=== PATIENT | male | born 1975 | race Caucasian/White ===

== ENCOUNTER 2020-12-27 22:25 | Observation (INO) ==
[2020-12-27 23:01] LABS: Basophils # (auto) 0.03 K/uL (0-0.2); Basophils % (auto) 0.3 %; Eosinophils # (auto) 0.25 K/uL (0-0.5); Eosinophils % (auto) 2.8 %; Hematocrit (blood only) 45.6 % (42-52); Hemoglobin 16.2 g/dL (14.0-18.0); Immature Granulocytes # (auto) 0.01 K/uL (0.00-0.02); Immature Granulocytes % (auto) 0.1 %; Lymphocytes # (auto) 1.83 K/uL (1.2-3.4); Lymphocytes % (auto) 20.5 %; Mean Corpuscular Hemoglobin 30.2 pg (25-34); Mean Corpuscular Hgb Conc 35.5 g/dL (32-36); Mean Corpuscular Volume 85.1 fL (80-100); Mean Platelet Volume 10.9 fL (7.4-10.4); Monocytes # (auto) 0.61 K/uL (0.11-0.59); Monocytes % (auto) 6.8 %; Neutrophils % (auto) 69.5 %; Platelet Count 244 K/uL (130-400); RDW Coefficient of Variation 13.5 % (11.5-14.5); RDW Standard Deviation 41.6 fL (36.4-46.3); Red Blood Count 5.36 M/uL (4.7-6.1); White Blood Count 8.93 K/uL (4.8-10.8)
[2020-12-27] MEDS ORDERED: GI COCKTAIL ED USE PO ONE (23:08)
[2020-12-27 23:15] LABS: Partial Thromboplastin Time 26.1 Seconds (21.0-31.0); Prothrombin Time 9.8 Seconds (9.0-12.0)
[2020-12-27 23:24] LABS: Alanine Aminotransferase 30 U/L (12-78); Albumin Globulin Ratio 0.8 (0.9-2); Albumin Level 3.5 gm/dl (3.4-5.0); Alkaline Phosphatase 75 U/L (45-117); Aspartate Aminotransferase 33 U/L (15-37); BUN Creatinine Ratio 13.1 (10-20); Bilirubin,Total 0.4 mg/dl (0.2-1); Blood Urea Nitrogen 14 mg/dl (7-18); Calcium 9.4 mg/dl (8.5-10.1); Carbon Dioxide 30 mmol/L (21-32); Chloride 100 mmol/L (98-107); Creatinine Clr Calc Pharmacy 117.5 ml/min; Est GFR (African American) 93.2 ml/min; Est GFR (Non-African American) 80.4 ml/min; Globulin 4.3 gm/dl (2.5-4.0); Glucose 116 mg/dl (70-99); Lipase 96 U/L (73-393); Potassium 3.8 mmol/L (3.5-5.1); Sodium 135 mmol/L (136-145); Total Protein 7.8 gm/dl (6.4-8.2); Troponin I < 0.015 ng/ml (0-0.045)
[2020-12-27] MEDS ORDERED: OPTIRAY 350 500ml IV ONE (23:59)
[2020-12-28] MEDS ORDERED: cefTRIAXone SODIUM 2,000 MG/70 ML BAG IV STA (00:24)
[2020-12-28] MEDS ORDERED: AZITHROMYCIN 250 MG TAB PO ONE (00:24)
[2020-12-28] MEDS ORDERED: lisinopril 20 MG TAB PO STA (00:30)
--- NOTE | 2020-12-28 00:58 | Emergency Department Note ---
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 He has not taken his medicines today. Patient states he is feeling better now. Patient denies fevers, abdominal pain, leg pain or swelling, history of DVT or PE or heart disease. Home Medications Medication Instructions Recorded Confirmed Type atorvastatin 40 mg PO HS 12/27/20 12/27/20 History ergocalciferol (vitamin D2) 1,250 mcg PO WK 12/27/20 12/27/20 History glipizide 10 mg PO BID 12/27/20 12/27/20 History lisinopril 20 mg PO HS 12/27/20 12/27/20 History metformin 1,000 mg PO BID 12/27/20 12/27/20 History Allergies Allergy/AdvReac Type Severity Reaction Status Date / Time No Known Allergies Allergy Verified 12/27/20 23:31 Past Med/Surg History Medical History Diabetes High blood pressure Surgical History No pertinent past surgical history Social History Smoking Status: Current every day smoker Tobacco Type: Cigarettes Feels Safe at Home: Yes Review of Systems A total of 10 systems reviewed and were otherwise negative Physical Exam Vital Signs Vital Signs - 24 hr 12/27/20 22:34 12/27/20 23:06 12/27/20 23:23 Temperature 36.8 C Temperature Source Oral Pulse Rate 99 H 93 H Pulse Rate [Apical] 99 H Pulse Rate from SpO2 Sensor Pulse Rhythm Regular Pulse Rhythm [Apical] Regular Pulse Strength Normal Pulse Strength [Apical] Normal Respiratory Rate 18 Respiratory Effort / Characteristics Non-Labored Spontaneous Respiratory Depth Normal Respiratory Pattern Regular Blood Pressure 200/103 H 205/106 H Blood Pressure [Right Arm] 200/103 H Blood Pressure Mean 135 139 Blood Pressure Mean [Right Arm] 135 Blood Pressure Position Semi-fowlers Blood Pressure Position [Right Arm] Semi-fowlers Pulse Oximetry 98 98 Oxygen Delivery Method Room Air Room Air Sepsis Recent Fever Within 48 Hours No Sepsis New/Unexplained Change in Mental Status No Sepsis Action Taken by Nursing No Action Required 12/27/20 23:32 12/28/20 00:00 12/28/20 00:30 Temperature Temperature Source Pulse Rate 95 H 93 H 90 Pulse Rate [Apical] Pulse Rate from SpO2 Sensor 94 H 93 H 90 Pulse Rhythm Pulse Rhythm [Apical] Pulse Strength Pulse Strength [Apical] Respiratory Rate 20 15 22 Respiratory Effort / Characteristics Respiratory Depth Respiratory Pattern Blood Pressure 190/110 H 200/110 H 194/110 H Blood Pressure [Right Arm] Blood Pressure Mean 136 140 138 Blood Pressure Mean [Right Arm] Blood Pressure Position Blood Pressure Position [Right Arm] Pulse Oximetry 98 97 98 Oxygen Delivery Method Room Air Room Air Room Air Sepsis Recent Fever Within 48 Hours Sepsis New/Unexplained Change in Mental Status Sepsis Action Taken by Nursing 12/28/20 01:00 12/28/20 01:30 12/28/20 02:00 Temperature Temperature Source Pulse Rate 90 102 H 92 H Pulse Rate [Apical] Pulse Rate from SpO2 Sensor 90 102 H 93 H Pulse Rhythm Pulse Rhythm [Apical] Pulse Strength Pulse Strength [Apical] Respiratory Rate 16 16 17 Respiratory Effort / Characteristics Respiratory Depth Respiratory Pattern Blood Pressure 183/102 H 174/115 H 204/107 H Blood Pressure [Right Arm] Blood Pressure Mean 129 134 139 Blood Pressure Mean [Right Arm] Blood Pressure Position Blood Pressure Position [Right Arm] Pulse Oximetry 98 98 98 Oxygen Delivery Method Room Air Room Air Room Air Sepsis Recent Fever Within 48 Hours Sepsis New/Unexplained Change in Mental Status Sepsis Action Taken by Nursing 12/28/20 02:01 Temperature Temperature Source Pulse Rate 95 H Pulse Rate [Apical] Pulse Rate from SpO2 Sensor 95 H Pulse Rhythm Pulse Rhythm [Apical] Pulse Strength Pulse Strength [Apical] Respiratory Rate 23 Respiratory Effort / Characteristics Respiratory Depth Respiratory Pattern Blood Pressure 196/112 H Blood Pressure [Right Arm] Blood Pressure Mean 140 Blood Pressure Mean [Right Arm] Blood Pressure Position Blood Pressure Position [Right Arm] Pulse Oximetry 99 Oxygen Delivery Method Room Air Sepsis Recent Fever Within 48 Hours Sepsis New/Unexplained Change in Mental Status Sepsis Action Taken by Nursing VITALS: Vitals are noted on the nurse's note and reviewed by myself. Vital sig ns hypertensive. GENERAL: Pleasant male, in no acute distress, nondiaphoretic, well-developed well-nourished. SKIN: The skin was without rashes, erythema, edema, or bruising. There is no tenting of the skin. Capillary reflex less than 2 seconds. HEAD: Normocephalic atraumatic. EARS: External auditory canals clear EYES: Pupils equal round and reactive to light and accommodation. Conjunctivae without injection, sclerae without icterus. Extraocular movements intact. NOSE: Patent, turbinates without inflammation or discharge. MOUTH: Mucous membranes moist. Pharynx without erythema or exudate. Uvula midline. Airway patent. Tongue does not deviate. NECK: Supple without nuchal rigidity. No lymphadenopathy. No thyromegaly. Cervical spine is nontender. No JVD. HEART: Regular rate and rhythm LUNGS: Clear to auscultation bilaterally without wheezes, rales or rhonchi. No retractions or accessory muscle use. ABDOMEN: Positive bowel sounds x 4. Normal tympanic percussion. Soft, nontender, without masses or organomegaly. Chua sign negative. No guarding or rebound tenderness. No CVA tenderness MUSCULOSKELETAL: No muscle atrophy, erythema, or edema noted. NEURO: Patient was alert and oriented to person place and time. Normal sensation to light and sharp touch. No focal neurological deficits. Course Administered Medications Discontinued Medications Al Hydrox/Mg Hydrox/Simethicone (Gi Cocktail Ed Use) 1 dose PO ONE ONE Stop: 12/27/20 23:09 Last Admin: 12/27/20 23:29 Dose: 1 dose Documented by: [id number] Azithromycin (Azithromycin 250 Mg Tab) 500 mg PO NOW ONE Stop: 12/28/20 00:25 Last Admin: 12/28/20 00:51 Dose: 500 mg Documented by: [id number] Ceftriaxone Sodium (Rocephin) 2,000 mg in 70 mls @ 140 mls/hr IV NOW STA Stop: 12/28/20 00:53 Last Infusion: 12/28/20 01:24 Dose: 0 mls/hr Documented by: [id number] Admin: 12/28/20 00:54 Dose: 140 mls/hr Documented by: [id number] Ioversol (Optiray 350 500ml) 125 ml IV ONCE ONE Stop: 12/28/20 00:00 Last Admin: 12/28/20 00:00 Dose: 111 ml Documented by: [id number] Lisinopril (Lisinopril 20 Mg Tab) 20 mg PO NOW STA Stop: 12/28/20 00:31 Last Admin: 12/28/20 00:51 Dose: 20 mg Documented by: [id number] Medical Decision Making Medical Records Attestation: I reviewed the patient's medical records. Home Medications Current Medication List: was personally reviewed by me Laboratory Data Attestation: I reviewed the patient's lab results. Result diagrams: 12/27/20 22:35 12/27/20 22:35 Labs: Lab Results 12/27/20 12/27/20 12/27/20 Range/Units 22:35 22:35 22:35 WBC 8.93 (4.8-10.8) K/uL RBC 5.36 (4.7-6.1) M/uL Hgb 16.2 (14.0-18.0) g/dL Hct 45.6 (42-52) % MCV 85.1 (80-100) fL MCH 30.2 (25-34) pg MCHC 35.5 (32-36) g/dL RDW Std Deviation 41.6 (36.4-46.3) fL RDW Coeff of Chaya 13.5 (11.5-14.5) % Plt Count 244 (130-400) K/uL MPV 10.9 H (7.4-10.4) fL Immature Gran % (Auto) 0.1 % Neut % (Auto) 69.5 % Lymph % (Auto) 20.5 % Graham % (Auto) 6.8 % Eos % (Auto) 2.8 % Baso % (Auto) 0.3 % Neut # (Auto) 6.20 (1.4-6.5) K/uL Lymph # (Auto) 1.83 (1.2-3.4) K/uL Graham # (Auto) 0.61 H (0.11-0.59) K/uL Eos # (Auto) 0.25 (0-0.5) K/uL Baso # (Auto) 0.03 (0-0.2) K/uL Immature Gran # (Auto) 0.01 (0.00-0.02) K/uL PT 9.8 (9.0-12.0) Seconds INR 1.0 (0.9-1.1) APTT 26.1 (21.0-31.0) Seconds PTT Ratio 1.0 Sodium 135 L (136-145) mmol/L Potassium 3.8 (3.5-5.1) mmol/L Chloride 100 (98-107) mmol/L Carbon Dioxide 30 (21-32) mmol/L Anion Gap 5.0 (3-11) BUN 14 (7-18) mg/dl Creatinine 1.09 (0.6-1.4) mg/dl Est Cr Clr Drug Dosing 117.5 ml/min Est GFR ( Amer) 93.2 ml/min Est GFR (Non-Af Amer) 80.4 ml/min BUN/Creatinine Ratio 13.1 (10-20) Glucose 116 H (70-99) mg/dl Calcium 9.4 (8.5-10.1) mg/dl Total Bilirubin 0.4 (0.2-1) mg/dl AST 33 (15-37) U/L ALT 30 (12-78) U/L Alkaline Phosphatase 75 (45-117) U/L Troponin I < 0.015 (0-0.045) ng/ml Total Protein 7.8 (6.4-8.2) gm/dl Albumin 3.5 (3.4-5.0) gm/dl Globulin 4.3 H (2.5-4.0) gm/dl Albumin/Globulin Ratio 0.8 L (0.9-2) Lipase 96 (73-393) U/L TSH 2.990 (0.300-4.500) uIu/ml Specimen Hemolysis COVID-19 Eval Order SARS-CoV-2 (PCR) (Negative) 12/28/20 12/28/20 12/28/20 Range/Units 00:49 01:02 01:02 WBC (4.8-10.8) K/uL RBC (4.7-6.1) M/uL Hgb (14.0-18.0) g/dL Hct (42-52) % MCV (80-100) fL MCH (25-34) pg MCHC (32-36) g/dL RDW Std Deviation (36.4-46.3) fL RDW Coeff of Chaya (11.5-14.5) % Plt Count (130-400) K/uL MPV (7.4-10.4) fL Immature Gran % (Auto) % Neut % (Auto) % Lymph % (Auto) % Graham % (Auto) % Eos % (Auto) % Baso % (Auto) % Neut # (Auto) (1.4-6.5) K/uL Lymph # (Auto) (1.2-3.4) K/uL Graham # (Auto) (0.11-0.59) K/uL Eos # (Auto) (0-0.5) K/uL Baso # (Auto) (0-0.2) K/uL Immature Gran # (Auto) (0.00-0.02) K/uL PT (9.0-12.0) Seconds INR (0.9-1.1) APTT (21.0-31.0) Seconds PTT Ratio Sodium (136-145) mmol/L Potassium (3.5-5.1) mmol/L Chloride (98-107) mmol/L Carbon Dioxide (21-32) mmol/L Anion Gap (3-11) BUN (7-18) mg/dl Creatinine (0.6-1.4) mg/dl Est Cr Clr Drug Dosing ml/min Est GFR ( Amer) ml/min Est GFR (Non-Af Amer) ml/min BUN/Creatinine Ratio (10-20) Glucose (70-99) mg/dl Calcium (8.5-10.1) mg/dl Total Bilirubin (0.2-1) mg/dl AST (15-37) U/L ALT (12-78) U/L Alkaline Phosphatase (45-117) U/L Troponin I 0.023 (0-0.045) ng/ml Total Protein (6.4-8.2) gm/dl Albumin (3.4-5.0) gm/dl Globulin (2.5-4.0) gm/dl Albumin/Globulin Ratio (0.9-2) Lipase (73-393) U/L TSH (0.300-4.500) uIu/ml Specimen Hemolysis COVID-19 Eval Order Covid19 at [facility] SARS-CoV-2 (PCR) NEGATIVE (Negative) MDM Narrative Prior records/ancillary studies reviewed. Triage Nursing notes reviewed. The patient's history was concerning for chest pain. Differential diagnosis: Etiologies such as cardiac ischemia, aortic dissection, pulmonary embolism, pneumonia, pneumothorax, musculoskeletal, infections, pericarditis, myocarditis, esophageal rupture, gastrointestinal, as well as others were entertained. Physical examination: As above. ER treatment provided: An order was placed for continuous cardiac monitoring. The monitor shows a rate of 60-1 10 with a sinus rhythm. IV fluids, GI cocktail, Rocephin, Zithromax On reassessment the patient felt better. Diagnostic interpretation by me: #1 the electrocardiogram was normal sinus, normal intervals, T wave inversions in lead I and aVL, rate of 90, Q wave in lead III. No old EKG. Normal sinus rhythm with T wave inversions in lead I and aVL interpreted by myself EKG ordered for chest pain I think arrhythmia is unlikely. EKG shows normal sinus rhythm with no interval abnormalities such as QT prolongation or WPW. There are no findings to suggest Brugada syndrome. Cardiac monitoring in the emergency department reveals no tachycardic or bradycardic dysrhythmia. Hypertrophic cardiomyopathy was considered but there are no clear historical elements pointing toward this. EKG is not suggestive. The QRS voltage is not extremely large and there are no suggestive Q waves. #2 the electrocardiogram was normal sinus, normal intervals, T wave inversions in lead I and aVL, rate of 90, Q wave in lead III. No old EKG. Normal sinus rhythm with T wave inversions in lead I and aVL interpreted by myself EKG ordered for chest pain I think arrhythmia is unlikely. EKG shows normal sinus rhythm with no interval abnormalities such as QT prolongation or WPW. There are no findings to suggest Brugada syndrome. Cardiac monitoring in the emergency department reveals no tachycardic or bradycardic dysrhythmia. Hypertrophic cardiomyopathy was considered but there are no clear historical elements pointing toward this. EKG is not suggestive. The QRS voltage is not extremely large and there are no suggestive Q waves. The labs revealed negative troponin x2 Negative Covid Imaging studies: Chest x-ray with possible left lower lobe pneumonia per my interpretation CTA CHEST: No CT evidence for pulmonary embolism. Mildly ectatic ascending thoracic area measuring 3.8 cm in diameter. No dissection. Normal heart size. No evidence for right heart strain. No pathologic intrathoracic lymphadenopathy. Prominent thyroid gland with subcentimeter hypodense nodules, which may be multinodular goiter. Minimal patchy bilateral ground-glass opacities which may be slight interstitial edema or small airways disease. Mild bilateral gynecomastia. Elevated right hemidiaphragm. No acute osseous abnormality. Radiologist: Sae Gutierrez M.D. HEART SCORE: Hx: high/mod/low suspicion: 0 ECG: ST depression/nonspecific changes/normal: 1 Age: Greater than 65/45-64/less than 45: 1 Risk factors: (Hypertension, hyperlipidemia, diabetes, coronary disease, tobacco use, cocaine use): 2 Troponin: Greater than 2 times normal limits/1-2 times normal limits/normal: 0 Total: 4 Consultation: A consultation was placed with the hospitalist. The case was discussed and diagnostics were reviewed. The patient was evaluated in the ER for further treatment. CURB Score: Confusion: 0 Urea (BUN > 19): 0 Respiratory Rate (>30/min): 0 Blood Pressure: Diastolic <60 or Systolic <90 0 Age (>= 65) 0 Total (0-1 low risk, 2-5 high risk): 0 Exam and history seem consistent with pneumonia with chest pain and abnormal EKG. No priors for comparison. Patient is requesting admission. Medicine was consulted. He will be evaluated for possible admission. By the evaluation outlined above emergent etiologies such as aortic dissection, pulmonary embolism, pneumothorax, pericarditis, myocarditis, gastrointestinal, as well as others were deemed relatively unlikely. The pt informed about the findings as listed above. All questions were answered and pleased with the treatment. The chart was completed utilizing [employer] Speech voice recognition software. Gr ammatical errors, random word insertions, pronoun errors, and incomplete sentences are an occassional consequence of this system due to software limitations, ambient noise, and hardware issues. Any formal questions or concerns about the content, text, or information contained within the body of this dictation should be directly addressed to the physician news assistant for clarification. Impression & Plan Chest pain, Pneumonia Discharge Plan Visit Data Chief Complaint: Chest Pain Stated Complaint: SOB, HEMATEMESIS ED Provider: Freddy Slater ED Midlevel Provider: Nakia Peterson Discharge Problem: Chest pain, Pneumonia Patient Disposition: Admitted As Inpatient Condition: Good Forms Stand Alone Forms: Testt Prescriptions Prescriptions: No Action atorvastatin 40 mg tablet 40 mg PO HS RF: 0 metformin 500 mg tablet 1,000 mg PO BID RF: 0 lisinopril 20 mg tablet 20 mg PO HS RF: 0 glipizide 10 mg tablet 10 mg PO BID RF: 0 ergocalciferol (vitamin D2) 1,250 mcg (50,000 unit) capsule 1,250 mcg PO WK RF: 0 Referrals Referrals: PCP,NO [Primary Care Provider] - Discharge Problem: Chest pain Qualifiers: Chest pain type: unspecified Qualified Code(s): R07.9 - Chest pain, unspecified
--- NOTE | 2020-12-28 02:15 | History & Physical Report ---
Date of Service December 28, 2020 Assessment & Plan (1) Hemoptysis: Patient is a 45 year old male with PMHx DM2, HTN, HLD, that presents to the ED after an episode of SOB, chest pain, and hemoptysis. Hemoptysis, suspect secondary to CAP -While likely CAP, must also consider malignancy, epistaxis, bleeding from poor care of oral cavity, esophageal varices aspiration, rheumatologic disease -CT chest negative for PE, aortic dissection. Notes minimal patchy bilateral walter und-glass opacities -Patient started on Azithromycin and Ceftriaxone in the ED, will continue Azithromycin and switch to Unasyn -Abx given prior to blood cultures being drawn, will hold on drawing any at this time. -Patient denies spending any time in care home and states he visited [place] once in 2002, but did not stay long. Hold on testing for TB at this time. -Procalcitonin, CRP, ESR drawn -If no improvement or worsening of hemoptysis (no recurrence since arrival in ED), consider consultation to Pulmonology for possible Bronchoscopy. Chest pain -Suspect secondary to above -Initial troponin <0.015, however, slightly increased to 0.023 on repeat. Will trend one more troponin at 6 hours and stop if negative. -Patient's EKG showing T-wave inversions in leads I and aVL, no priors to compare and patient has not had chest pain since his symptoms initially started. -EKG in AM -Echo in AM -BP control as below -No ASA given due to concerns of Hemoptysis and low suspicion for ACS Severe Asymptomatic Hypertension -Argument can be made for Hypertensive emergency as patient had chest pain earlier in the evening and likely had elevated BP at that time as well -No other symptoms of headache or end organ damage noted -Continue home Lisinopril -Will also give 5mg IV lopressor now in addition to scheduled 5mg IV lopressor q6h for attempts to keep BP <160/<100 at this time Thyroid nodules -CT noting prominent thyroid gland with subcentimeter hypodense nodules -TSH with reflex ordered -Would follow outpatient upon discharge DM2 -Hold home meds -SSI -Consider basal bolus if sugars uncontrolled -HgbA1C ordered, patient noting last was 8.1 a year ago. HLD -Continue Atorvastatin Dispo: Med/Surg Tele for monitoring, IV abx FEN: DM2 diet DVT: SCDs Code: Full History of Present Illness Chief Complaint: Coughing up blood Primary Care Provider: NO PCP Patient is a 45 year old male with PMHx DM2, HTN, HLD, that presents to the ED after an episode of SOB, chest pain, and hemoptysis. 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 He notes that he was to have his shipment there by midnight of 12/27/20. He states that around 8:40PM he had been laying down when he started experiencing chest tightness in addition to dyspnea. He notes that he also began coughing as though he were trying to "cough something out of my lungs" and upon sitting up states he spat out bright red blood. He notes that the next 3-4 coughs following also brought up blood and that it resolved his SOB and chest tightness. He states he has never had something like this happen before and had otherwise been feeling well. He denies any nausea, vomiting, diarrhea, current SOB, current chest pain, current chest pressure, fever, chills, headache, visual changes, dysuria, or cough. He denies being around any sick contacts. He notes his last meal was around 3PM where he had a hamburger and fries. 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 Allergies Allergy/AdvReac Type Severity Reaction Status Date / Time No Known Allergies Allergy Verified 12/27/20 23:31 Home Medications Medication Instructions Recorded Confirmed Type atorvastatin 40 mg PO HS 12/27/20 12/27/20 History ergocalciferol (vitamin D2) 1,250 mcg PO WK 12/27/20 12/27/20 History glipizide 10 mg PO BID 12/27/20 12/27/20 History lisinopril 20 mg PO HS 12/27/20 12/27/20 History metformin 1,000 mg PO BID 12/27/20 12/27/20 History Past Med/Surg History Medical History Diabetes High blood pressure Surgical History No pertinent past surgical history Social History Smoking Status: Current every day smoker Tobacco Type: Cigarettes Cigarettes Per Day: 30; Second Hand Exposure: No; Do You Dip or Chew Tobacco: No; Tobacco Cessation Education Requested by Patient: No Hx Alcohol Use: Yes Alcohol type: hard liquor Hx Substance Use: No Preferred Language: Italian Communication Ability: Effective 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: No Beliefs That Will Affect Care: None Current Living Situation: Alone Other Information That Helps Us Care for You: No Feels Safe at Home: Yes Safety Concerns: Feels Safe At This Time Assistive Devices: None Review of Systems Review of Systems: All systems reviewed & are unremarkable except as noted in Subjective Physical Exam Constitutional: well developed and well nourished; no acute distress Eyes: PERRL, conjunctivae normal, anicteric sclerae ENMT: Ears: no hearing impairment and no external ear abnormality Nose: no external nose abnormality, no septum abnormality, no nasal discharge, no foreign body in naris and no nasal polyps Mouth: + poor dentition (Severely poor missing multiple teeth ) Throat: uvula midline Neck: normal visual inspection Goiter noted on CT, though unable to palpable a significantly enlarged thyroid Respiratory: normal respiratory effort; no respiratory distress and no labored breathing Auscultation: lungs clear to auscultation bilaterally; no crackles, no rales and no rhonchi Cardiovascular: Rate/Rhythm: regular rhythm and + tachycardic Heart Sounds: normal S1 and normal S2; no murmur Vessels: no JVD Extremities: no calf tenderness and no edema Gastrointestinal (Abdomen): normal bowel sounds, soft, nontender, no hepatosplenomegaly Musculoskeletal: no cyanosis or clubbing, extremities motor strength 5/5 Skin: no rashes, warm and dry Neurologic: PERRL, EOMI, accommodation nl, no face palsy, no dysarthria Psychiatric: A+Ox3, euthymic affect Results & Data Results & Data ([facility]) Vital Signs (Past 12 Hours) Vital Signs Temp Pulse Pulse Resp BP BP Pulse Ox 12/28/20 01:30 102 H 16 174/115 H 98 05/28/21 01:00 90 16 183/102 H 98 12/28/20 00:30 90 22 194/110 H 98 12/28/20 00:00 93 H 15 200/110 H 97 12/27/20 23:32 95 H 20 190/110 H 98 12/27/20 23:23 98 12/27/20 23:06 93 H 205/106 H 12/27/20 22:34 36.8 C 99 H 99 H 18 200/103 H 200/103 H 98 Supervising Physician Co-Signing Physician Notes Attending addendum: I have physically seen this patient, have supervised the medical residents activities, and agree with the H&P unless as otherwise noted. Assessment and Plan: Hemoptysis/CAP- Concerned about possible endobronchial lesion with history of tobacco use Unasyn IV and azithromycin IV Duonebs every 4 hours while awake and every 2 hours when necessary. Guaifenesin extended release 60 mg p.o. twice daily Consult pulmonology Chest pain/ST segment depressions in 1 and aVL/uncontrolled blood pressure- The patient will be admitted to telemetry for serial cardiac enzymes, serial EKG's, cardiac rhythm monitoring and a 2-D echocardiogram with Dopplers. Continue lisinopril 20 mg in the evening Add as needed Lopressor IV as noted Consult cardiology Diabetes mellitus- Placed in Accu-Cheks before meals and at bedtime with NovoLog coverage per scale Check hemoglobin A1c Hyperlipidemia- Continue atorvastatin Check a fasting lipid panel Remaining orders and notations as noted Resident Activity Tracking Resident Involvement: Resident Care Provided Care Provided: Adult Hospital Medicine
[2020-12-28] MEDS ORDERED: METOPROLOL TARTRATE 1 MG/ML VIAL IV STA ×2 (02:48→04:44)
[2020-12-28] MEDS ORDERED: AMPICILLIN IM SCH (04:14)
[2020-12-28] MEDS ORDERED: GLUCOSE 40% GEL 15 GM TUBE PO PRN (04:14)
[2020-12-28] MEDS ORDERED: GLUCAGON FOR INJ 1 MG VIAL SQ PRN (04:14)
[2020-12-28] MEDS ORDERED: ACETAMINOPHEN 325 MG TAB PO PRN (04:14)
[2020-12-28] MEDS ORDERED: NITROGLYCERIN SL 0.4 MG/TAB TAB SL PRN (04:14)
[2020-12-28] MEDS ORDERED: ONDANSETRON INJ 2 MG/ML 2 ML VIAL IV PRN (04:14)
[2020-12-28] MEDS ORDERED: DEXTROSE 50% 50 ML SYRINGE IV PRN (04:14)
[2020-12-28] MEDS ORDERED: GLUCOSE 10 TABS/TUBE PO PRN (04:14)
[2020-12-28] MEDS ORDERED: CARBOHYDRATES FOR HYPOGLYCEMIA PO PRN (04:14)
[2020-12-28] MEDS ORDERED: SULBACTAM SOD IM SCH (04:14)
[2020-12-28] MEDS: AMPICILLIN/SULBACTAM SOD 1,500 MG in 0.9 % SODIUM CHLORIDE 100 ML IV SCH ×4 (04:57→22:28)
[2020-12-28] MEDS: NICOTINE 21 MG/24 HR TDSY TD SCH ×2 (05:40→08:19)
[2020-12-28] MEDS ORDERED: hydrALAZINE HCL 20 MG/ML VIAL IV PRN ×2 (05:41→18:38)
[2020-12-28 06:27] LABS: Basophils # (auto) 0.02 K/uL (0-0.2); Basophils % (auto) 0.3 %; Eosinophils # (auto) 0.19 K/uL (0-0.5); Eosinophils % (auto) 2.4 %; Hematocrit (blood only) 42.3 % (42-52); Hemoglobin 14.8 g/dL (14.0-18.0); Immature Granulocytes # (auto) 0.02 K/uL (0.00-0.02); Immature Granulocytes % (auto) 0.3 %; Lymphocytes # (auto) 1.62 K/uL (1.2-3.4); Lymphocytes % (auto) 20.3 %; Mean Corpuscular Hemoglobin 29.5 pg (25-34); Mean Corpuscular Volume 84.4 fL (80-100); Mean Platelet Volume 10.5 fL (7.4-10.4); Monocytes # (auto) 0.51 K/uL (0.11-0.59); Monocytes % (auto) 6.4 %; Neutrophils # (auto) 5.61 K/uL (1.4-6.5); Neutrophils % (auto) 70.3 %; Platelet Count 225 K/uL (130-400); RDW Coefficient of Variation 13.4 % (11.5-14.5); Red Blood Count 5.01 M/uL (4.7-6.1); White Blood Count 7.97 K/uL (4.8-10.8)
[2020-12-28 06:47] LABS: Estimated Average Glucose 232 mg/dl; Hemoglobin A1C 9.7 % (4.5-5.6)
[2020-12-28 07:22] LABS: Est GFR (Non-African American) 94.9 ml/min
[2020-12-28 07:23] LABS: BUN Creatinine Ratio 13.1 (10-20); Calcium 8.6 mg/dl (8.5-10.1); Creatinine Clr Calc Pharmacy 133.4 ml/min; Troponin I 0.023 ng/ml (0-0.045)
--- NOTE | 2020-12-28 07:24 | CT Scan Report ---
CT ANGIOGRAM OF THE CHEST CLINICAL HISTORY: Hemoptysis. Chest pain. Possible acute pulmonary embolism. COMPARISON STUDY: Chest x-ray performed the same day TECHNIQUE: Following the IV administration of 111 mL of Optiray, CT angiogram of the thorax was perfo rmed from the thoracic inlet to the lung bases utilizing the pulmonary embolus protocol. Images are r eviewed in the axial, sagittal, and coronal planes. IV contrast was administered without complication . MIP imaging was performed. A dose lowering technique was utilized adhering to the principles of AL LILY. CT DOSE: 970.08 mGy.cm FINDINGS: No pathologically enlarged axillary mediastinal or hilar lymph nodes were visualized. There is mild dilatation of the ascending thoracic aorta which measures 40 mm. There were no pulmonary artery filling defects to indicate acute pulmonary embolism. No pleural effusions are visualized. There is elevation of right hemidiaphragm. There are no focal areas of parenchymal consolidation to i ndicate a pneumonia. Subtle groundglass attenuation the lungs, likely is secondary to airway disease or a suboptimal inspiration. IMPRESSION: 1. No evidence of acute pulmonary embolism 2. Elevation of the right hemidiaphragm 2. No evidence of focal pulmonary consolidation 4. No evidence of pathologic adenopathy. 5. Mild dilatation of the ascending thoracic aorta. 6. Subtle patchy groundglass attenuation the lungs, likely secondary to airway disease or a suboptima l inspiration ACT 112: Negative or not required by law. Electronically signed by: Jon Fortune M.D. 12/28/2020 7:23 AM
[2020-12-28] MEDS ORDERED: PERFLUTREN LIPID MICROSPHERE (DEFINITY) IV ONE (07:55)
[2020-12-28] MEDS: INSULIN ASPART 100 UNITS/ML 3 ML PEN SC SCH ×4 (08:23→21:06)
[2020-12-28] MEDS: METOPROLOL TARTRATE 1 MG/ML VIAL IV SCH ×2 (08:30→15:07)
--- NOTE | 2020-12-28 08:48 | XRay Report ---
XR chest 1V portable CLINICAL HISTORY: Chest Pain COMPARISON STUDY: None FINDINGS: No pneumothorax. No pleural effusion. No large infiltrates or consolidative lesions are seen. Right hemidiaphragm is elevated. Crowded lung markings are seen in bilateral lower lungs. Cardiomediastinal silhouette is within normal limits in size. No significant pulmonary vascular congestion.. Osseous structures: unremarkable IMPRESSION: 1. No large infiltrates or consolidative lesions. Elevated right hemidiaphragm. ACT 112: Negative or not required by law. The above report was generated using voice recognition software. It may contain grammatical, syntax o r spelling errors. Electronically signed by: Chela Galvez DO 12/28/2020 8:47 AM
--- NOTE | 2020-12-28 11:03 | Medical Student Progress Note ---
Date of Service December 28, 2020 Assessment & Plan (1) Hemoptysis: Patient is a 45-year-old male with a history of DMII, hypertension, and hyperlipidemia who presented to the ED after an episode of shortness of breath, chest pain, and hemoptysis. Hemoptysis: - CT chest negative for PE, aortic dissection. Notes minimal patchy bilateral ground-glass opacities. - Unlikely to be pneumonia given mild findings on CXR and CT, afebrile, no leukocytosis, and low inflammatory markers. Discontinue Unasyn and Azithromycin at this time. - While there were no alarming findings on CT, given the patient's smoking history there is a small possibility that this could represent a mucosal malignancy or other finding was not visualized on imaging. Follow up with bronchoscopy in the outpatient setting. Chest pain - Suspect secondary to above - Troponin initially <.015, then .23, .23, will repeat in 6 hours. Can discontinue trending if negative. - Patient's EKG showing T-wave inversions in leads I and aVL, no priors to compare and patient has not had chest pain since his symptoms initially started. - Echo benign. Severe Asymptomatic Hypertension - No headache, chest pain, or kidney dysfunction. - Continue home Lisinopril and begin hydrochlorothiazide in an effort to control hypertension with SBP <180 prior to discharge. - Echo shows moderate concentric left ventricular hypertrophy consistent with longstanding hypertension. Diabetes Mellitus II: - Hold home meds. - SSI. - Consider basal bolus if sugars uncontrolled. - HgbA1C = 9.7; follow-up outpatient. Hyperlipidemia: - Continue Atorvastatin per home regimen. Dispo: Med/Surg Tele for monitoring FEN: DM2 diet DVT: SCDs Code: Full Admission and Anticipated Discharge Date Admission Date: December 28, 2020 Supervising Attestation I personally examined the patient and verified all powers points of history and exam, discussed case, and agree with decision making with Dominic Hayden feeling fine. no further hemoptysis. no cp. nellie noted nad heent nc at mmm breathing unlabored no accessory mscules good effort hemoptysis - no overt findings on CT chest, don't really think minor findings are pronounced enough to really be significant. outpt pulm f/u uncontrolled HTN - no sx to attribute - suspect he runs around this high for undefined period of time. escalate care. home once better controlled. then close outpt f/u. otherwise as above Subjective Mr. Hansen is a 45-year-old male who presented with concern of chest pain, shortness of breath, and hemoptysis. He is doing well today and does not endorse any repeat occurrence of these symptoms nor coughing. He does not endorse any fever, chills, or night sweats. He does endorse a headache and a sore neck. He does not endorse abdominal pain, nausea or vomiting. He has been moving his bowels and ambulating well. Review of Systems Review of Systems: All systems reviewed & are unremarkable except as noted in HPI & below Musculoskeletal: Pain to palpation in right rib. Present for at least six weeks. Physical Exam Physical Exam: Patient resting comfortably on exam. No acute distress. Constitutional: WD/WN, vitals as above Respiratory: normal respiratory effort Auscultation: + wheezes; no crackles and no rales Cardiovascular: RRR, no murmur, no edema Gastrointestinal (Abdomen): normal bowel sounds, soft, nontender, no hepatosplenomegaly Skin: no rashes, warm and dry Psychiatric: A+Ox3, euthymic affect Results & Data ([facility]) Vital Signs (Past 12 Hours) Vital Signs Temp Pulse Pulse Resp BP BP BP 12/28/20 08:30 98 H 192/111 H 12/28/20 06:41 36.5 C 88 20 192/117 H 194/110 H 12/28/20 05:30 81 191/101 H 12/28/20 04:58 93 H 200/115 H 12/28/20 04:42 84 12/28/20 04:24 36.5 C 80 18 200/115 H 12/28/20 03:30 86 16 175/109 H 12/28/20 03:10 88 205/109 H 12/28/20 03:00 89 12 205/109 H 12/28/20 02:30 87 15 185/107 H 12/28/20 02:01 95 H 23 196/112 H 12/28/20 02:00 92 H 17 204/107 H 12/28/20 01:30 102 H 16 174/115 H 12/28/20 01:00 90 16 183/102 H 12/28/20 00:30 90 22 194/110 H 12/28/20 00:00 93 H 15 200/110 H 12/27/20 23:32 95 H 20 190/110 H 12/27/20 23:23 12/27/20 23:06 93 H 205/106 H Pulse Ox 12/28/20 08:30 12/28/20 06:41 96 12/28/20 05:30 12/28/20 04:58 12/28/20 04:42 12/28/20 04:24 97 12/28/20 03:30 98 12/28/20 03:10 12/28/20 03:00 98 12/28/20 02:30 98 12/28/20 02:01 99 12/28/20 02:00 98 12/28/20 01:30 98 12/28/20 01:00 98 12/28/20 00:30 98 12/28/20 00:00 97 12/27/20 23:32 98 12/27/20 23:23 98 12/27/20 23:06 Laboratory Results 12/28/20 12/28/20 12/28/20 07:50 06:07 06:07 WBC 7.97 RBC 5.01 Hgb 14.8 Hct 42.3 MCV 84.4 MCH 29.5 MCHC 35.0 RDW Std Deviation 41.0 RDW Coeff of Chaya 13.4 Plt Count 225 MPV 10.5 H Immature Gran % (Auto) 0.3 Neut % (Auto) 70.3 Lymph % (Auto) 20.3 [place] % (Auto) 6.4 Eos % (Auto) 2.4 Baso % (Auto) 0.3 Neut # (Auto) 5.61 Lymph # (Auto) 1.62 [place] # (Auto) 0.51 Eos # (Auto) 0.19 Baso # (Auto) 0.02 Immature Gran # (Auto) 0.02 ESR PT INR APTT PTT Ratio Sodium Potassium Chloride Carbon Dioxide Anion Gap BUN Creatinine Est Cr Clr Drug Dosing Est GFR ( Amer) Est GFR (Non-Af Amer) BUN/Creatinine Ratio Glucose POC Glucose 169 H Estimat Average Glucose 232 Hemoglobin A1c 9.7 H Calcium Total Bilirubin AST ALT Alkaline Phosphatase Troponin I C-Reactive Protein Total Protein Albumin Globulin Albumin/Globulin Ratio Lipase Procalcitonin TSH Specimen Hemolysis COVID-19 Eval Order SARS-CoV-2 (PCR) 12/28/20 12/28/20 12/28/20 06:07 01:02 01:02 WBC RBC Hgb Hct MCV MCH MCHC RDW Std Deviation RDW Coeff of Chaya Plt Count MPV Immature Gran % (Auto) Neut % (Auto) Lymph % (Auto) [place] % (Auto) Eos % (Auto) Baso % (Auto) Neut # (Auto) Lymph # (Auto) [place] # (Auto) Eos # (Auto) Baso # (Auto) Immature Gran # (Auto) ESR PT INR APTT PTT Ratio Sodium 134 L Potassium 4.0 Chloride 101 Carbon Dioxide 27 Anion Gap 6.0 BUN 13 Creatinine 0.95 Est Cr Clr Drug Dosing 133.4 Est GFR ( Amer) 110.0 Est GFR (Non-Af Amer) 94.9 BUN/Creatinine Ratio 13.1 Glucose 196 H POC Glucose Estimat Average Glucose Hemoglobin A1c Calcium 8.6 Total Bilirubin AST ALT Alkaline Phosphatase Troponin I 0.023 C-Reactive Protein Total Protein Albumin Globulin Albumin/Globulin Ratio Lipase Procalcitonin TSH Specimen Hemolysis COVID-19 Eval Order Covid19 at [facility] SARS-CoV-2 (PCR) NEGATIVE 12/28/20 12/27/20 12/27/20 00:49 22:35 22:35 WBC RBC Hgb Hct MCV MCH MCHC RDW Std Deviation RDW Coeff of Chaya Plt Count MPV Immature Gran % (Auto) Neut % (Auto) Lymph % (Auto) [place] % (Auto) Eos % (Auto) Baso % (Auto) Neut # (Auto) Lymph # (Auto) [place] # (Auto) Eos # (Auto) Baso # (Auto) Immature Gran # (Auto) ESR 34 H PT INR APTT PTT Ratio Sodium Potassium Chloride Carbon Dioxide Anion Gap BUN Creatinine Est Cr Clr Drug Dosing Est GFR ( Amer) Est GFR (Non-Af Amer) BUN/Creatinine Ratio Glucose POC Glucose Estimat Average Glucose Hemoglobin A1c Calcium Total Bilirubin AST ALT Alkaline Phosphatase Troponin I 0.023 C-Reactive Protein Total Protein Albumin Globulin Albumin/Globulin Ratio Lipase Procalcitonin 0.05 TSH Specimen Hemolysis COVID-19 Eval Order SARS-CoV-2 (PCR) 12/27/20 12/27/20 12/27/20 22:35 22:35 22:35 WBC 8.93 RBC 5.36 Hgb 16.2 Hct 45.6 MCV 85.1 MCH 30.2 MCHC 35.5 RDW Std Deviation 41.6 RDW Coeff of Chaya 13.5 Plt Count 244 MPV 10.9 H Immature Gran % (Auto) 0.1 Neut % (Auto) 69.5 Lymph % (Auto) 20.5 [place] % (Auto) 6.8 Eos % (Auto) 2.8 Baso % (Auto) 0.3 Neut # (Auto) 6.20 Lymph # (Auto) 1.83 [place] # (Auto) 0.61 H Eos # (Auto) 0.25 Baso # (Auto) 0.03 Immature Gran # (Auto) 0.01 ESR PT 9.8 INR 1.0 APTT 26.1 PTT Ratio 1.0 Sodium 135 L Potassium 3.8 Chloride 100 Carbon Dioxide 30 Anion Gap 5.0 BUN 14 Creatinine 1.09 Est Cr Clr Drug Dosing 117.5 Est GFR ( Amer) 93.2 Est GFR (Non-Af Amer) 80.4 BUN/Creatinine Ratio 13.1 Glucose 116 H POC Glucose Estimat Average Glucose Hemoglobin A1c Calcium 9.4 Total Bilirubin 0.4 AST 33 ALT 30 Alkaline Phosphatase 75 Troponin I < 0.015 C-Reactive Protein 2.10 H Total Protein 7.8 Albumin 3.5 Globulin 4.3 H Albumin/Globulin Ratio 0.8 L Lipase 96 Procalcitonin TSH 2.990 Specimen Hemolysis COVID-19 Eval Order SARS-CoV-2 (PCR) Diagnostic Findings Echo: Left ventricular systolic function normal. No regional wall motion abnormalities. Moderate concentric left ventricular hypertrophy. EF = 60-65%. Mild tricuspid regurgitation. Medications Administered Current Inpatient Medications Acetaminophen (Acetaminophen 325 Mg Tab) 650 mg PO Q4H PRN PRN Reason: Pain or Fever Stop: 01/27/21 04:13 Atorvastatin Calcium (Atorvastatin 40 Mg Tab) 40 mg PO HS JASON Stop: 01/27/21 20:59 Dextrose (Dextrose 50% 50 Ml Syringe) 25 - 50 ml IV UD PRN; Protocol PRN Reason: Hypoglycemia Protocol Stop: 01/27/21 04:13 Glucagon (Glucagon For Inj 1 Mg Vial) 1 mg SQ UD PRN; Protocol PRN Reason: Hypoglycemia Protocol Stop: 01/27/21 04:13 Glucose (Glucose 10 Tabs/Tube) 4 - 8 tabs PO UD PRN; Protocol PRN Reason: Hypoglycemia Protocol Stop: 01/27/21 04:13 Glucose (Glucose 40% Gel 15 Gm Tube) 15 - 30 gm PO UD PRN; Protocol PRN Reason: Hypoglycemia Protocol Stop: 01/27/21 04:13 Hydralazine HCl (Hydralazine Hcl 20 Mg/Ml Vial) 10 mg IV Q6H PRN PRN Reason: Systolic BP >185 Stop: 01/27/21 05:40 Last Admin: 12/28/20 05:49 Dose: 10 mg Documented by: Azithromycin 500 mg/ Dextrose 255 mls @ 127.5 mls/hr IV Q24H [facility] Stop: 01/05/21 00:59 Ampicillin Sodium/Sulbactam Sodium 1,500 mg/ Sodium Chloride 104 mls @ 208 mls/hr IV Q6H [facility] Stop: 01/04/21 04:59 Last Infusion: 12/28/20 05:42 Dose: Infused Documented by: Insulin Aspart (Insulin Aspart 100 Units/Ml 3 Ml Pen) 0 units SC ACHS [facility] Stop: 01/27/21 07:29 Last Admin: 12/28/20 08:23 Dose: 6 units Documented by: Lisinopril (Lisinopril 20 Mg Tab) 20 mg PO HS [facility] Stop: 01/27/21 20:59 Metoprolol Tartrate (Metoprolol Tartrate 1 Mg/Ml Vial) 5 mg IV Q6H [facility] Stop: 01/27/21 08:59 Last Admin: 12/28/20 08:30 Dose: 5 mg Documented by: Miscellaneous (Carbohydrates For Hypoglycemia ) 15 - 30 gm PO UD PRN PRN Reason: Hypoglycemia Protocol Stop: 01/27/21 04:13 Miscellaneous (Remove Nicoderm Patch) 1 ea N/A DAILY@[id number] [facility] Stop: 01/27/21 08:58 Last Admin: 12/28/20 05:41 Dose: Not Given Documented by: Nicotine (Nicotine 21 Mg/24 Hr Tdsy) 21 mg TD QAM [facility] Stop: 01/27/21 08:59 Last Admin: 12/28/20 08:19 Dose: 21 mg Documented by: Nitroglycerin (Nitroglycerin Sl 0.4 Mg/Tab Tab) 0.4 mg SL UD PRN PRN Reason: Chest Pain Stop: 01/27/21 04:13 Ondansetron HCl (Ondansetron Inj 2 Mg/Ml 2 Ml Vial) 4 mg IV Q6H PRN PRN Reason: Nausea Stop: 01/27/21 04:13
[2020-12-28] MEDS ORDERED: amLODIPine BESYLATE 5 MG TAB PO ONE (13:39)
--- NOTE | 2020-12-28 14:15 | XCELERA ---
[id number]
--- NOTE | 2020-12-28 15:39 | Electrocardiogram Report ---
Test Reason : Blood Pressure : / mmHG Vent. Rate : 087 BPM Atrial Rate : 087 BPM P-R Int : 136 ms QRS Dur : 084 ms QT Int : 406 ms P-R-T Axes : 053 027 131 degrees QTc Int : 488 ms Normal sinus rhythm Possible Left atrial enlargement Abnormal ECG When compared with ECG of 27-DEC-2020 22:31, (unconfirmed) No significant change was found Confirmed by Munir Cristobal ([id number]) on 12/28/2020 3:38:25 PM Referred By: REFERRED SELF Confirmed By:Munir Cristobal
[2020-12-28] MEDS ORDERED: hydroCHLOROthiazide 25 MG TAB PO STA (15:51)
--- NOTE | 2020-12-28 19:04 | Billing Data ---
Date of Service December 28, 2020 Coding Level of Care Code 30902 Subseq Obs Care Lvl 3
[2020-12-28] MEDS ORDERED: lisinopril 20 MG TAB PO SCH (21:00)
[2020-12-28] MEDS ORDERED: ATORVASTATIN 40 MG TAB PO SCH (21:00)
[2020-12-28] MEDS: lisinopril 20 MG TAB PO SCH (21:05)
[2020-12-28] MEDS: LABETALOL HCL 100 MG TAB PO SCH (21:06)
--- NOTE | 2020-12-28 22:32 | Billing Data ---
Date of Service December 28, 2020 Coding Level of Care Code 48238 OBS Care - Level 3
[2020-12-29] MEDS ORDERED: AZITHROMYCIN 500 MG in DEXTROSE 5% 250 ML IV SCH (01:00)
[2020-12-29] MEDS: AMPICILLIN/SULBACTAM SOD 1,500 MG in 0.9 % SODIUM CHLORIDE 100 ML IV SCH (04:15)
[2020-12-29 06:53] LABS: Basophils # (auto) 0.04 K/uL (0-0.2); Basophils % (auto) 0.7 %; Eosinophils # (auto) 0.15 K/uL (0-0.5); Eosinophils % (auto) 2.5 %; Hematocrit (blood only) 44.1 % (42-52); Hemoglobin 15.7 g/dL (14.0-18.0); Immature Granulocytes # (auto) 0.01 K/uL (0.00-0.02); Immature Granulocytes % (auto) 0.2 %; Lymphocytes # (auto) 0.89 K/uL (1.2-3.4); Lymphocytes % (auto) 14.9 %; Mean Corpuscular Hemoglobin 30.5 pg (25-34); Mean Corpuscular Hgb Conc 35.6 g/dL (32-36); Mean Corpuscular Volume 85.8 fL (80-100); Mean Platelet Volume 10.7 fL (7.4-10.4); Neutrophils # (auto) 4.59 K/uL (1.4-6.5); Neutrophils % (auto) 76.7 %; Platelet Count 241 K/uL (130-400); RDW Coefficient of Variation 13.1 % (11.5-14.5); RDW Standard Deviation 41.6 fL (36.4-46.3); Red Blood Count 5.14 M/uL (4.7-6.1); White Blood Count 5.98 K/uL (4.8-10.8)
[2020-12-29 07:24] LABS: Calcium 9.1 mg/dl (8.5-10.1); Creatinine Clr Calc Pharmacy 130.4 ml/min; Est GFR (African American) 108.7 ml/min; Est GFR (Non-African American) 93.8 ml/min; Potassium 3.8 mmol/L (3.5-5.1); Uric Acid 5.4 mg/dl (2.6-7.2)
[2020-12-29] MEDS: NICOTINE 21 MG/24 HR TDSY TD SCH (08:20)
[2020-12-29] MEDS: lisinopril 20 MG TAB PO SCH (08:21)
[2020-12-29] MEDS ORDERED: hydroCHLOROthiazide 25 MG TAB PO SCH (09:00)
[2020-12-29] MEDS: INSULIN ASPART 100 UNITS/ML 3 ML PEN SC SCH (09:02)
[2020-12-29] MEDS: LABETALOL HCL 100 MG TAB PO SCH (09:27)
--- NOTE | 2020-12-29 15:18 | Electrocardiogram Report ---
Test Reason : Blood Pressure : / mmHG Vent. Rate : 086 BPM Atrial Rate : 086 BPM P-R Int : 128 ms QRS Dur : 084 ms QT Int : 414 ms P-R-T Axes : 032 044 122 degrees QTc Int : 495 ms Normal sinus rhythm Voltage criteria for left ventricular hypertrophy Prolonged QT Abnormal ECG When compared with ECG of 28-DEC-2020 00:57, No significant change was found Confirmed by Lyndon Baig ([id number]) on 12/29/2020 3:18:38 PM Referred By: REFERRED SELF Confirmed By:Lyndon Baig
--- NOTE | 2020-12-29 17:20 | Discharge Summary ---
Date of Service December 29, 2020 Admission HPI Per Admitting Provider Patient is a 45 year old male with PMHx DM2, HTN, HLD, that presents to the ED after an episode of SOB, chest pain, and hemoptysis. 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 He notes that he was to have his shipment there by midnight of 12/27/20. He states that around 8:40PM he had been laying down when he started experiencing chest tightness in addition to dyspnea. He notes that he also began coughing as though he were trying to "cough something out of my lungs" and upon sitting up states he spat out bright red blood. He notes that the next 3-4 coughs following also brought up blood and that it resolved his SOB and chest tightness. He states he has never had something like this happen before and had otherwise been feeling well. He denies any nausea, vomiting, diarrhea, current SOB, current chest pain, current chest pressure, fever, chills, headache, visual changes, dysuria, or cough. He denies being around any sick contacts. He notes his last meal was summer und 3PM where he had a hamburger and fries. 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 Principal Diagnosis Hemoptysisresolved (for outpatient work-up) Uncontrolled hypertension (with not unexpected degree of LVH on echocardiogram)control improving, for close outpatient follow-up. Discharge Exam General he is awake and alert pleasant no distress. HEENT normocephalic atraumatic mucous membranes moist. Breathing unlabored no accessory muscle use good effort. Skin shows no rashes no pallor or icterus. Discharge Data Allergies Allergy/AdvReac Type Severity Reaction Status Date / Time No Known Allergies Allergy Verified 12/27/20 23:31 Consultations 12/28/20 02:18 ED Decision to Admit Stat 12/29/20 10:10 Burn CD for patient Routine Ordered Studies 12/27/20 23:08 CT angio chest PE protocol Urgent Hospital Course (1) Hemoptysis: Had an episode of hemoptysis. Longtime smoker. Came to the ER. CT chest official read has a question of pneumonia, but on exam and clinically he does not really fit with it, and looking at the CT pictures themselves, it is fairly unimpressive haziness. I suspect it is probably more nonspecific. In regards to his hemoptysis itself, I wonder about posterior nosebleed given that there are no lung masses noted on CT. That said we did discuss that given he has been a longtime smoker, he should follow-up with pulmonary back home to either have this followed, or consider whether or not bronchoscopy would be warranted (2) Hypertension: Had markedly elevated blood pressures, fairly difficult to control, but really essentially asymptomatic. He had a degree of chest pressure whenever he first came in, but the seem to fit more with hemoptysis. Troponins were negative, echo without wall motion abnormalities but did show LVH. Eventually was able to get his pressures to about a stage III level of hypertensive numbers on lisinopril 20 twice daily, labetalol 100 twice daily, and hydrochlorothiazide 25 mg daily. Discussed risk/benefits/side effects and lab monitoring. Discussed close outpatient follow-up. But since his pressures are less uncontrolled and he is asymptomatic, he is stable for home. Basic metabolic panel next week, close PCP follow-up. We discussed lifestyle changehe has mostly been eating what he gets on the road, and not exercising. We discussed a Mediterranean type diet/bringing his own food with him when he is driving, as well as a target of 30 minutes of walking every day, and then discussed smoke cessation. I discussed that achieving these lifestyle changes would likely at least affect better blood pressure control, likely make it less likely for him to need more medications, and possibly even get him to control without medications. Close PCP follow-up (3) Type 2 diabetes mellitus without complications: A1c was 9.7. Lifestyle changes as outlined for hypertension would likely help with this as well. He also seemed quite amenable to lifestyle change in general, so while we were talking about things focused on his blood pressure, PCP follow-up for lifestyle change discussions as it relates to his diabetes would likely be of high yield as well (4) LVH (left ventricular hypertrophy): Not unexpected given his blood pressures. Follow-up periodically as an outpatient Total Time Total Time Spent Total Time Spent (In Minutes): <30 Discharge Plan Discharge Items Patient Disposition: Home - Self-Care Reason For Visit: HEMOPTYSIS Discharge Diagnosis: hemoptysis (coughing up blood) resolved uncontrolled hypertension - improving Condition on Discharge: Good Activity: Resume your previous activity Non-emergency contact: Primary Care Provider and Neighborhood Aide Call non-emergency contact if: you have any medication questions and your symptoms worsen Follow-up/Referrals: PCP,NO [Primary Care Provider] - Diet: Other - See Diet Comment Diet Comment: work towards annean - low in simple carbs/salt/saturated fats Addtl Attending Provider Instructions: hemoptysis -coughing up blood has a lot of different causes. fortunately your CT did not show any overt masses, and while the official reading by radiology raised a question of maybe a mild pneumonia, it really didn't fit the clinical picture either. to that end, it's most likely just some mucosal irritation, or even a posterior nosebleed (sometimes those will really just drip down the back rather than be something you'd catch when blowing your nose) -it appears very safe to get you home. we'd recommend following up with a sales and marketing assistant to be safe/thorough/complete. there's a pretty good chance they'll just want to keep an eye on you, but with the smoking history, if they feel a bronchoscopy is warranted to take a closer look, that would be quite reasonable too uncontrolled hypertension -we suspect your blood pressures have likely been running this high for quite a while and you just didn't have symptoms from it. we did note on echocardiogram that your heart muscle is a little thicker - from pushing against the high back pressure of your blood pressure - but otherwise your heart looked normal -for now, we've got you on three medications to control this - as we discussed, actually an "average" high blood pressure patient is on about 3 meds - but hopefully with time and lifestyle change (healthier eating - mediterannean type diet heavy in fruits/vegetables, lean proteins, and low in simple carbs/saturated fats/sodium; exercise - ideally a 30 minute walk a day, every day. but something is better than nothing, and more is better than less; and stopping smoking) you can either get easier to control with your blood pressure, or possibly even fix it to where it's controlled with lifestyle alone -medication perera, we've increased the lisinopril you're already on to 20mg twice a day, added hydrochlorothiazide (a diuretic that changes how your kidneys process sodium -- most people the peeing all the time stabilizes after a week or two - if not/if it's incompatible with your job then your PCP can consider changing it - and requires labs in about a week (BMP to make sure you're not g oing to need potassium supplementation) and added labetalol (a beta marissa type medicine that reduces how hard/fast your heart squeezes, and also relaxes blood vessels some - typically well tolerated although in some people it can cause an annoying fatigue - which, if it happens, would make it reasonable to consider shifting to a different medicine as well) -since your pressures are lower than you've probably been used to running, just be careful when you first get up from laying or sitting so you don't get lightheaded or risk a faint -continue to follow closely with your PCP in this regard to do: -follow up with your PCP this week to recheck blood pressures, see how you're adjusting to the new medications, and check labs (BMP) -follow up with a sales and marketing assistant in the next ~month or so for a detailed evaluation on the hemoptysis ---->we've asked that your chart get copied to go with you, but if you/your docs have any info missing that they need please don't hesitate to contact us: ----the main line for the hospital is [phone] --> from there they can get you to the health information management department, or if your docs have specific questions for us, they can reach out to us as your hospitalists ----the [facility] patient portal is actually pretty useful - all the labs/imaging reports (unfortunately not the actual images, but we did ask them to burn it on a disc) and i believe also at least some of our physician notes are put into the portal Pending Studies at Discharge: No Stand-Alone Forms: My [employer], Smoking Cessation Medications and DC Order Prescriptions: New lisinopril 20 mg Tablet 20 mg PO BID Qty: 60 RF: 0 hydrochlorothiazide 25 mg Tablet 25 mg PO QAM Qty: 30 RF: 0 labetalol 100 mg Tablet 100 mg PO BID Qty: 60 RF: 0 Continued atorvastatin 40 mg tablet 40 mg PO HS RF: 0 metformin 500 mg tablet 1,000 mg PO BID RF: 0 glipizide 10 mg tablet 10 mg PO BID RF: 0 ergocalciferol (vitamin D2) 1,250 mcg (50,000 unit) capsule 1,250 mcg PO WK RF: 0 Discontinued lisinopril 20 mg tablet 20 mg PO HS RF: 0 Discharge Orders: Discharge Order (Routine); Ordered 12/29/20 Ordered By: Min Aponte Admission Data Admit Date/Time: 12/28/20 02:47 Attending Provider: Min Aponte Admit Provider: Last Peng Primary Care Provider: PCP,NO Other Providers: Chau Ledezma Other Interventions: Discharge Summary Assessment (RN) Last Done: 12/29/20 11:01 Coding Level of Care Code 55608 OBS Care - Discharge Diagnoses Hemoptysis R04.2 Hypertension I10 Type 2 diabetes mellitus without complications E11.9 LVH (left ventricular hypertrophy) I51.7
== END 2020-12-29 12:00 | disposition home or self-care (01) ==
LOC: 2N 22:25 → ED 22:25 → SUATTDRO 12-28 02:47 → 2N 12-28 03:45